=== PATIENT | female | born 1985 | race Caucasian/White ===

== ENCOUNTER 2019-11-14 18:06 | Emergency (ER) | payer OTHER ==
[2019-11-14 18:16] VITALS: BMI 26.1
--- NOTE | 2019-11-14 18:17 | PDOC ---
Rapid Medical Evaluation Time Seen by Provider: 11/14/19 18:11 Medical Evaluation: 11/14/19 18:12 Pt presents for evaluation of abdominal pain for 5 days. She state the pain radiates to her back and neck. She notes she hasn't had a bowel movement and states that she cant. Denies fevers, nausea, vomiting, diarrhea. Exam: diffuse abdominal pain Orders: labs, urine Pt to proceed to the ER for further evaluation Discharge Disposition - Diagnosis Abdominal pain Qualifiers: Abdominal location: generalized Qualified Code(s): R10.84 - Generalized abdominal pain - Referrals - Patient Instructions - Post Discharge Activity
[2019-11-14 18:50] LABS: BASO % 0.5 % (0-2.0); EOS % 1.8 % (0-4.5); HEMATOCRIT 37.3 % (32.4-45.2); HEMOGLOBIN 12.8 GM/dL (10.7-15.3); LYMPH % 46.3 % (8-40); MCH 31.1 pg (25.7-33.7); MCHC 34.2 g/dl (32.0-36.0); MEAN CELL VOLUME 91.1 fl (80-96); MEAN PLT VOLUME 8.8 fl (7.5-11.1); MONO % 6.4 % (3.8-10.2); PLATELET COUNT 227 K/MM3 (134-434); RDW 13.1 % (11.6-15.6)
[2019-11-14 19:05] LABS: EPI CELLS 1.1 /HPF (0-5/HPF); HYALINE CASTS 0 /lpf (0-8); PH,URINE 6.5 (5.0-8.0); URINE APPEARANCE CLOUDY; URINE BILIRUBIN NEGATIVE (NEGATIVE); URINE COLOR YELLOW; URINE GLUCOSE (UA) NEGATIVE (NEGATIVE); URINE KETONE NEGATIVE (NEGATIVE); URINE LEUK ESTERASE TRACE (NEGATIVE); URINE NITRITE NEGATIVE (NEGATIVE); URINE PROTEIN NEGATIVE (NEGATIVE); URINE UROBILINOGEN 0.2 mg/dL (0.2-1.0); URINE WBC 2 /hpf (0-5)
[2019-11-14 19:21] LABS: ALBUMIN 4.1 g/dl (3.4-5.0); BILIRUBIN,TOTAL 0.2 mg/dL (0.2-1); BLOOD UREA NITROGEN 8.2 mg/dL (7-18); CALCIUM 9.5 mg/dL (8.5-10.1); CREATININE 0.7 mg/dL (0.55-1.3); POTASSIUM 3.6 mmol/L (3.5-5.1); TOT PROT 7.7 g/dl (6.4-8.2)
[2019-11-14 19:35] LABS: URINE RBC NONE SEEN /hpf (0-4)
--- NOTE | 2019-11-14 19:59 | PDOC ---
History of Present Illness - General Chief Complaint: Constipation Stated Complaint: CONSTIPATION Time Seen by Provider: 11/14/19 18:11 History Source: Patient Exam Limitations: No Limitations - History of Present Illness Initial Comments: 11/14/19 19:55 Patient is a 34-year-old female who presents to the ED with complaint of abdominal pain and inability to have a bowel movement for the last 5 days. She states she typically has a history of constipation. She denies any dysuria. She denies any fevers or chills. She denies any nausea or vomiting. She has not taken anything for her symptoms. She states she does have a history of constipation and frequently has this problem. She denies any past medical history or allergies to medications. Past History - Past Medical History Allergies/Adverse Reactions: Allergies Allergy/AdvReac Type Severity Reaction Status Date / Time No Known Allergies Allergy Verified 11/14/19 18:12 Home Medications: Ambulatory Orders Nitrofurantoin Monohyd/M-Cryst [Macrobid -] 100 mg PO BID #14 capsule 11/14/19 Polyethylene Glycol 3350 [Miralax (For Daily Use) -] 17 gm PO DAILY #1 bottle COPD: No - Immunization History Immunization Up to Date: Yes - Psycho Social/Smoking Cessation Hx Smoking History: Never smoked Hx Alcohol Use: No Drug/Substance Use Hx: No Review of Systems - Review of Systems Comments:: 11/14/19 19:57 - Review of Systems Able to Perform ROS?: Yes Constitutional: No: Fever, Chills, Loss of Appetite, Night Sweats, Weakness HEENTM: No: Eye Pain, Vision changes, Ear Pain, Throat Pain, Throat Swelling, Mouth Pain, Difficulty Swallowing Respiratory: No: Cough, Shortness of Breath, Wheezing, Sputum Production Cardiac (ROS): No: Chest Pain, Chest Tightness, Palpitations, Irregular Heart Beat, Edema ABD/GI: No: Nausea, Vomiting, Abdominal Pain, Diarrhea; + Constipation : No Dysuria, No Hematuria, No Frequency, No Urgency, No Vaginal Discharge Musculoskeletal: No: Muscle Pain, Back Pain, Joint Pain, Muscle Weakness, Neck Pain Integumentary: No: Lesions, Rash Neurological: No: Headache, Numbness, Tingling, Weakness, Speech Difficulties *Physical Exam - Vital Signs Last Vital Signs Temp Pulse Resp BP Pulse Ox 98.5 F 85 18 136/75 100 01/22/20 18:13 11/14/19 18:13 11/14/19 18:13 11/14/19 18:13 11/14/19 18:13 - Physical Exam 11/14/19 19:57 - Physical Exam General Appearance: Nourished, Appropriately Dressed, No Distress Neck: Supple, No Lymphadenopathy (R), No Lymphadenopathy (L), No Rigidity, No Decreased range of motion Respiratory/Chest: Lungs Clear, Normal Breath Sounds. No Respiratory Distress, No Accessory Muscle Use Cardiovascular: Regular Rhythm, Regular Rate, S1, S2 Gastrointestinal/Abdominal: Normal Bowel Sounds, Soft. Non-tender, No Guarding , No Rebound, No Rigidity; moderate LLQ abdominal tenderness to palpaiton Musculoskeletal: Normal Inspection. No Decreased Range of Motion Extremity: Normal Capillary Refill, Normal Inspection Integumentary: Normal Color, Dry. 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 NML intact, Fully Oriented, Alert, Normal Mood/Affect, Normal Response ED Treatment Course - LABORATORY CBC & Chemistry Diagram: 11/14/19 18:35 11/14/19 18:35 - ADDITIONAL ORDERS Additional order review: Laboratory Results 11/14/19 11/14/19 11/14/19 18:35 18:35 18:35 Sodium 141 Potassium 3.6 Chloride 106 Carbon Dioxide 28 Anion Gap 7 L BUN 8.2 Creatinine 0.7 Est GFR (CKD-EPI)AfAm 129.19 Est GFR (CKD-EPI)NonAf 111.47 Random Glucose 95 Calcium 9.5 Total Bilirubin 0.2 AST 23 ALT 50 Alkaline Phosphatase 115 Total Protein 7.7 Albumin 4.1 Urine Color Yellow Urine Appearance Cloudy Urine pH 6.5 Ur Specific [place] 1.009 L Urine Protein Negative Urine Glucose (UA) Negative Urine Ketones Negative Urine Blood 1+ H Urine Nitrite Negative Urine Bilirubin Negative Urine Urobilinogen 0.2 Ur Leukocyte Esterase Trace Urine WBC (Auto) 2 Urine RBC (Auto) None seen Urine Casts (Auto) 0 U Epithel Cells (Auto) 1.1 Urine Bacteria (Auto) 63.0 Urine HCG, Qual Negative 11/14/19 18:35 RBC 4.10 MCV 91.1 MCHC 34.2 RDW 13.1 MPV 8.8 Neutrophils % 45.0 Lymphocytes % 46.3 H Monocytes % 6.4 Eosinophils % 1.8 Basophils % 0.5 - RADIOLOGY Radiology Studies Ordered: Category Date Time Status ABDOMEN FLAT & UPRIGHT [RAD] Stat Radiology 11/14/19 19:49 Ordered Radiograph Interpretation: 11/14/19 21:05 The abdominal x-ray shows a significant amount of stool throughout the colon. Medical Decision Making - Medical Decision Making 11/14/19 19:58 Patient is a 34-year-old female with left-sided abdominal pain and constipation. -We will send blood work for evaluation -Abdominal x-ray ordered -We will reassess 11/14/19 21:00 The patient has been made aware that she has a urinary tract infection and constipation. We will send a prescription for Macrobid to her pharmacy as well as MiraLAX. She should follow-up with her primary doctor within 1 to 2 days for repeat evaluation. She understands and agrees with this treatment plan and she is stable for discharge. Discharge - Discharge Information Problems reviewed: Yes Clinical Impression/Diagnosis: Constipation Qualifiers: Constipation type: other constipation type Qualified Code(s): K59.09 - Other constipation Urinary tract infection Qualifiers: Urinary tract infection type: acute cystitis Hematuria presence: without hematuria Qualified Code(s): N30.00 - Acute cystitis without hematuria Condition: Stable Disposition: HOME - Additional Discharge Information Prescriptions: Nitrofurantoin Monohyd/M-Cryst [Macrobid -] 100 mg PO BID #14 capsule Polyethylene Glycol 3350 [Miralax (For Daily Use) -] 17 gm PO DAILY #1 bottle - Follow up/Referral Referrals: [facility] [place] [facility] [place] [Provider Group] - Patient Discharge Instructions Patient Printed Discharge Instructions: DI for Constipation, DI for Urinary Tract Infection (UTI) Additional Instructions: Get plenty of rest and drink plenty of fluids. Be sure to eat green leafy vegetables and plenty of fruits. Take the medications as prescribed. Take the antibiotic and complete the entire course. Follow-up with your primary doctor within 1 to 2 days for repeat evaluation. Print Language: CITIZEN OF [place] - Post Discharge Activity Work/Back to School Note: Back to Work
[2019-11-14 20:31] VITALS: BP 110/81; PULSE 75; TEMP 97.9
== END 2019-11-14 22:00 | disposition home or self-care (01) ==
LOC: JER 18:06
DX: N30.00 Acute cystitis without hematuria (principal); K59.00 Constipation, unspecified
CPT/HCPCS: 36415; 74019-TC-FY; 80053; 81003; 84703; 85025; 87086; 99282-25

== ENCOUNTER 2023-09-24 16:28 | Emergency (ER) | payer OTHER ==
[2023-09-24 16:55] VITALS: BP 108/74; RESP 18; TEMP 98.1; BMI 27.5
[2023-09-24] MEDS ORDERED: KETOROLAC TROMETHAMINE 30 MG/1 ML VIAL IM ONE (17:17)
[2023-09-24] MEDS ORDERED: ACETAMINOPHEN 500 MG TABLET (FP) PO ONE (17:17)
[2023-09-24 17:20] VITALS: PULSE 66
[2023-09-24] MEDS ORDERED: ACETAMINOPHEN 500 MG TABLET (FP) ONE (17:22)
[2023-09-24] MEDS ORDERED: KETOROLAC TROMETHAMINE 30 MG/1 ML VIAL ONE (17:22)
== END 2023-09-24 18:35 | disposition home or self-care (01) ==
LOC: JERFT 16:28
PROC: 3E0233Z Introduction of Anti-inflammatory into Muscle, Percutaneous Approach (ICD-10-PCS; principal; 2023-09-24)
DX: M25.562 Pain in left knee (principal); X50.0XXA Overexertion from strenuous movement or load, initial encounter; Y93.01 Activity, walking, marching and hiking; Y92.9 Unspecified place or not applicable
CPT/HCPCS: 73562-TC-LT-FY; 99284-25